=== PATIENT | male | born 1985 | race African-American/Black ===

== ENCOUNTER 2016-11-18 17:57 | Emergency (ER) | payer SELFPAY ==
[~2016-11-18] VITALS: Ht 170.2 cm; Wt 67.0 kg
[2016-11-18] MEDS ORDERED: LIDOCAINE HCL 1% 20ML VIAL (Pyxis) INJ MC ONE (20:15)
[2016-11-18] MEDS ORDERED: TETANUS, DIPHTHERIA, PERTUSSIS VAC/PF 0.5ML (>7YR OLD) IM ONE (20:15)
[2016-11-18] MEDS ORDERED: BACITRACIN ZINC OINT UDPKT TOP ONE (20:15)
[2016-11-18] MEDS ORDERED: KETOROLAC 60MG/2ML VIAL IM ONE (20:15)
[2016-11-18 21:00] VITALS: BP 104/43
== END 2016-11-18 21:59 | disposition home or self-care (01) ==
LOC: ER 18:18
DX: S01.81XA Laceration without foreign body of other part of head, initial encounter (principal); W22.8XXA Striking against or struck by other objects, initial encounter; Y93.89 Activity, other specified; Y92.89 Other specified places as the place of occurrence of the external cause; Y99.8 Other external cause status
CPT/HCPCS: 12013; 90471; 90715; 96372; 99284; J1885; J3490; X7700; Z7610

== ENCOUNTER 2016-11-26 11:29 | Emergency (ER) | payer SELFPAY ==
[~2016-11-26] VITALS: Ht 170.2 cm; Wt 67.0 kg
[2016-11-26 11:49] VITALS: BP 132/67
[2016-11-26] MEDS ORDERED: BACITRACIN ZINC OINT UDPKT TOP ONE (12:30)
== END 2016-11-26 13:30 | disposition home or self-care (01) ==
LOC: ER 13:27
DX: Z48.02 Encounter for removal of sutures (principal)
CPT/HCPCS: 99282; Z7610

== ENCOUNTER 2017-01-04 00:58 | Emergency (ER) | payer SELFPAY ==
[~2017-01-04] VITALS: Ht 170.2 cm; Wt 69.0 kg
[2017-01-04] MEDS ORDERED: ONDANSETRON HCL 4MG/2ML VIAL IV STA (01:51)
[2017-01-04] MEDS ORDERED: MORPHINE SULFATE 4 MG/ML CPJ (NOT FOR IM USE) IV STA (01:51)
[2017-01-04] MEDS ORDERED: BACITRACIN ZINC OINT UDPKT TOP ONE (02:00)
[2017-01-04] MEDS ORDERED: LIDOCAINE HCL 1% 20ML VIAL (Pyxis) INJ INJ ONE (02:00)
[2017-01-04 05:11] VITALS: BP 106/63
== END 2017-01-04 05:22 | disposition home or self-care (01) ==
LOC: ER 00:58
DX: S01.01XA Laceration without foreign body of scalp, initial encounter (principal); F17.200 Nicotine dependence, unspecified, uncomplicated; F12.10 Cannabis abuse, uncomplicated; Y08.89XA Assault by other specified means, initial encounter; Y93.89 Activity, other specified; Y92.89 Other specified places as the place of occurrence of the external cause; Y99.8 Other external cause status
CPT/HCPCS: 70450; 96374; 96375; 99284; A4217; J2270; J2405; J3490; Z7610

== ENCOUNTER 2017-05-19 19:27 | Emergency (ER) | payer OTHER ==
[~2017-05-19] VITALS: Ht 170.2 cm; Wt 67.0 kg
[2017-05-19] MEDS ORDERED: SODIUM CHLORIDE 0.9% 1,000 ML IV ONE (22:06)
[2017-05-19] MEDS ORDERED: KETOROLAC 30MG/ML VIAL IV STA (22:06)
[2017-05-19 22:49] LABS: CLARITY URINE CLEAR (CLEAR); COLOR URINE YELLOW (YELLOW); KETONES URINE NEGATIVE (NEGATIVE); LEUKOCYTE ESTERASE URINE NEGATIVE (NEGATIVE); NITRITE URINE NEGATIVE (NEGATIVE); OCCULT BLOOD URINE NEGATIVE (NEGATIVE); PH URINE 5.5 (4.5-8.0); PROTEIN URINE NEGATIVE (NEGATIVE)
[2017-05-19 22:55] LABS: EOSINOPHILS % 2.7 % (0.0-5.0); HEMATOCRIT. 39.4 % (42.0-52.0); HEMOGLOBIN. 13.5 g/dL (14.0-18.0); LYMPHOCYTES % 27.9 % (20.0-50.0); MEAN CORPUSCULAR HEMOGLOBIN 32.6 pg (28.0-32.0); MEAN CORPUSCULAR VOLUME 95.5 fL (80.0-94.0); MEAN PLATELET VOLUME 9.4 fl (7.4-10.4); NEUTROPHILS % 59.4 % (40.0-76.0); PLATELET 250 x1000/uL (130-400); RED BLOOD CELL COUNT 4.13 mill/uL (4.7-6.1); RED CELL DISTRIBUTION WIDTH 13.1 % (11.6-14.6)
[2017-05-19 22:57] LABS: PROTHROMBIN TIME 10.5 sec (9.4-11.6)
[2017-05-19 22:59] LABS: *AMPHETAMINES SCREEN URINE PRESUMTIVE POSITIVE (NEGATIVE); *BARBITURATES SCREEN URINE NEGATIVE (NEGATIVE); *BENZODIAZEPINES SCREEN URINE NEGATIVE (NEGATIVE); *COCAINE SCREEN URINE NEGATIVE (NEGATIVE); CANNABINOID URINE SCREEN PRESUMTIVE POSITIVE (NEGATIVE); METHADONE URINE SCREEN NEGATIVE (NEGATIVE); OPIATES URINE SCREEN NEGATIVE (NEGATIVE); PHENCYCLIDINE URINE SCREEN NEGATIVE (NEGATIVE)
[2017-05-19 23:00] LABS: CHLORIDE 106 mEq/L (98-107)
[2017-05-20 02:56] VITALS: BP 121/84
== END 2017-05-20 04:50 | disposition home or self-care (01) ==
LOC: ER 20:24
DX: R10.9 Unspecified abdominal pain (principal); F19.10 Other psychoactive substance abuse, uncomplicated; Z95.1 Presence of aortocoronary bypass graft; Z87.891 Personal history of nicotine dependence
CPT/HCPCS: 36415; 80053; 80305; 81003; 83690; 85025; 85610; 96361; 96374; 99284; J1885; J7030; Z7610

== ENCOUNTER 2017-06-12 08:53 | Emergency (ER) | payer OTHER ==
[~2017-06-12] VITALS: Ht 177.8 cm; Wt 77.0 kg
[2017-06-12] MEDS ORDERED: BACITRACIN ZINC OINT UDPKT TOP ONE (10:30)
[2017-06-12] MEDS ORDERED: IBUPROFEN 600MG TABLET PO ONE (10:30)
[2017-06-12 10:41] VITALS: BP 117/62
== END 2017-06-12 10:52 | disposition home or self-care (01) ==
LOC: ER 09:54
DX: S61.412A Laceration without foreign body of left hand, initial encounter (principal); W25.XXXA Contact with sharp glass, initial encounter; Y93.89 Activity, other specified; Y92.9 Unspecified place or not applicable
CPT/HCPCS: 99283

== ENCOUNTER 2017-10-18 22:22 | Emergency (ER) | payer OTHER ==
[~2017-10-18] VITALS: Ht 170.2 cm; Wt 70.0 kg
[2017-10-19 01:43] LABS: CLARITY URINE CLEAR (CLEAR); COLOR URINE YELLOW (YELLOW); KETONES URINE TRACE (NEGATIVE); LEUKOCYTE ESTERASE URINE NEGATIVE (NEGATIVE); NITRITE URINE NEGATIVE (NEGATIVE); OCCULT BLOOD URINE TRACE (NEGATIVE); PROTEIN URINE NEGATIVE (NEGATIVE); SPECIFIC GRAVITY URINE 1.026 (1.005-1.030)
[2017-10-19 03:10] VITALS: BP 126/66
== END 2017-10-19 03:10 | disposition home or self-care (01) ==
LOC: ER 10-19 01:19
DX: R31.21 Asymptomatic microscopic hematuria (principal); Z95.5 Presence of coronary angioplasty implant and graft; Z88.9 Allergy status to unspecified drugs, medicaments and biological substances
CPT/HCPCS: 81003; 99283

== ENCOUNTER 2019-08-11 22:31 | Emergency (ER) | payer SELFPAY ==
[~2019-08-11] VITALS: Ht 170.2 cm; Wt 69.0 kg
[2019-08-11 22:35] VITALS: BP 125/78
[2019-08-11] MEDS ORDERED: ACETAMINOPHEN 325MG TABLET PO ONE (23:00)
[2019-08-11] MEDS ORDERED: TETANUS, DIPHTHERIA, PERTUSSIS VAC/PF 0.5ML (>7YR OLD) IM ONE (23:15)
== END 2019-08-12 00:14 | disposition home or self-care (01) ==
LOC: ER 22:31
DX: S01.83XA Puncture wound without foreign body of other part of head, initial encounter (principal); Z98.890 Other specified postprocedural states; Y04.0XXA Assault by unarmed brawl or fight, initial encounter; Y93.89 Activity, other specified; Y92.89 Other specified places as the place of occurrence of the external cause; Y99.8 Other external cause status
CPT/HCPCS: 70486; 71045; 72100; 90471; 90715; 99285

== ENCOUNTER 2019-10-16 22:31 | Emergency (ER) | payer MEDICAID ==
[~2019-10-16] VITALS: Ht 170.2 cm; Wt 70.0 kg
[2019-10-16] MEDS ORDERED: IBUPROFEN 600MG TABLET PO STA (23:47)
[2019-10-17] MEDS ORDERED: LIDOCAINE HCL/PF 1% 10 MG/ML 5ML VIAL IJ NR (01:30)
[2019-10-17 02:18] VITALS: BP 128/75
== END 2019-10-17 02:25 | disposition home or self-care (01) ==
LOC: ER 22:31
DX: S63.281A Dislocation of proximal interphalangeal joint of left index finger, initial encounter (principal); Y04.0XXA Assault by unarmed brawl or fight, initial encounter; Y93.89 Activity, other specified; Y92.89 Other specified places as the place of occurrence of the external cause; Y99.8 Other external cause status
CPT/HCPCS: 29130; 73140; 99283; J3490

== ENCOUNTER 2020-05-29 22:26 | Emergency (ER) | payer MEDICAID ==
[~2020-05-29] VITALS: Ht 170.2 cm; Wt 63.3 kg
[2020-05-30] MEDS ORDERED: ACETAMINOPHEN WITH CODEINE 300/30MG TABLET PO ONE
[2020-05-30 01:05] VITALS: BP 176/99
[2020-05-30] MEDS ORDERED: IBUP-2029 MT (01:34)
== END 2020-05-30 02:39 | disposition home or self-care (01) ==
LOC: ER 22:26
DX: S60.212A Contusion of left wrist, initial encounter (principal); Z98.890 Other specified postprocedural states; Y08.89XA Assault by other specified means, initial encounter; Y93.89 Activity, other specified; Y92.89 Other specified places as the place of occurrence of the external cause; Y99.8 Other external cause status
CPT/HCPCS: 73110; 73130; 99283

== ENCOUNTER 2020-06-23 23:17 | Emergency (ER) | payer MEDICAID ==
[~2020-06-23] VITALS: Ht 170.2 cm; Wt 71.0 kg
[~2020-06-23 23:17] MED LIST: IBUP-2029 MT
[2020-06-24] MEDS ORDERED: CLIN300C12 MT (00:24)
[2020-06-24] MEDS ORDERED: IBUP-2029 MT (00:24)
[2020-06-24] MEDS ORDERED: KETOROLAC 30MG/ML VIAL IM ONE (00:30)
[2020-06-24 01:00] VITALS: BP 137/82
== END 2020-06-24 01:00 | disposition home or self-care (01) ==
LOC: ER 23:17
DX: S60.212A Contusion of left wrist, initial encounter (principal); S60.222A Contusion of left hand, initial encounter; S61.213A Laceration without foreign body of left middle finger without damage to nail, initial encounter; M79.641 Pain in right hand; M79.89 Other specified soft tissue disorders; R03.0 Elevated blood-pressure reading, without diagnosis of hypertension; W26.8XXA Contact with other sharp object(s), not elsewhere classified, initial encounter; X58.XXXA Exposure to other specified factors, initial encounter; Y93.89 Activity, other specified; Y92.89 Other specified places as the place of occurrence of the external cause; Q71.4 Longitudinal reduction defect of radius; Z87.828 Personal history of other (healed) physical injury and trauma
CPT/HCPCS: 96372; 99283; J1885

== ENCOUNTER 2020-08-14 23:19 | Emergency (ER) | payer MEDICAID, OTHER ==
[~2020-08-14] VITALS: Ht 170.2 cm; Wt 69.0 kg
[~2020-08-14 23:19] MED LIST changes: +CLIN300C12 MT
[2020-08-14 23:55] VITALS: BP 136/69
[2020-08-15] MEDS ORDERED: ACETAMINOPHEN 325MG TABLET PO ONE (00:15)
[2020-08-15] MEDS ORDERED: TOPUD PO (01:41)
== END 2020-08-15 02:00 | disposition home or self-care (01) ==
LOC: ER 23:19
DX: M79.645 Pain in left finger(s) (principal); M79.641 Pain in right hand; Z87.81 Personal history of (healed) traumatic fracture
CPT/HCPCS: 73130; 99283

== ENCOUNTER 2020-11-26 16:32 | Emergency (ER) | payer MEDICAID, OTHER ==
[~2020-11-26] VITALS: Ht 170.2 cm; Wt 66.0 kg
[~2020-11-26 16:32] MED LIST changes: +TOPUD PO
[2020-11-26] MEDS ORDERED: ACETAMINOPHEN 325MG TABLET PO ONE (19:00)
[2020-11-26 21:30] VITALS: BP 116/87
== END 2020-11-26 21:32 | disposition home or self-care (01) ==
LOC: ER 16:32
DX: S62.309A Unspecified fracture of unspecified metacarpal bone, initial encounter for closed fracture (principal); X58.XXXA Exposure to other specified factors, initial encounter; Y93.89 Activity, other specified; Y92.89 Other specified places as the place of occurrence of the external cause; Y99.8 Other external cause status
CPT/HCPCS: 29125; 73130; 99283

== ENCOUNTER 2021-11-22 22:16 | Emergency (ER) | payer MEDICAID, OTHER ==
[~2021-11-22] VITALS: Ht 170.2 cm; Wt 69.0 kg
[~2021-11-22 22:16] MED LIST changes: +CLIN-194 MT; -CLIN300C12 MT
[2021-11-22 22:40] VITALS: BP 123/80
[2021-11-23] MEDS ORDERED: NEOMYCIN/BACITRACIN/POLYMYXIN OINT 14GM TOP SCH (02:30)
== END 2021-11-23 02:54 | disposition home or self-care (01) ==
LOC: ER 22:16
DX: S01.111A Laceration without foreign body of right eyelid and periocular area, initial encounter (principal); W01.190A Fall on same level from slipping, tripping and stumbling with subsequent striking against furniture, initial encounter; Y93.89 Activity, other specified; Y92.89 Other specified places as the place of occurrence of the external cause; Z87.828 Personal history of other (healed) physical injury and trauma; Z98.890 Other specified postprocedural states
CPT/HCPCS: 99281

== ENCOUNTER 2023-06-18 15:42 | Emergency (ER) | payer MEDICAID, OTHER ==
[~2023-06-18] VITALS: Ht 170.2 cm; Wt 69.0 kg
[2023-06-18 16:34] VITALS: BP 161/98; PULSE 90; RESP 18; TEMP 98.8; O2SAT 100
== END 2023-06-18 21:16 | disposition home or self-care (01) ==
LOC: ER 15:42
DX: R51.9 Headache, unspecified (principal); V89.2XXA Person injured in unspecified motor-vehicle accident, traffic, initial encounter; Y93.89 Activity, other specified; Y92.89 Other specified places as the place of occurrence of the external cause; Y99.8 Other external cause status
CPT/HCPCS: 99284